=== PATIENT | female | born 1975 | race Hispanic/Latino ===

== ENCOUNTER 2017-02-09 19:59 | Observation (INO) | payer OTHER ==
[~2017-02-09] VITALS: Ht 157.5 cm; Wt 69.0 kg
[~2017-02-09 19:59] MED LIST: ACYCLOVIR400 MG PO; BACTRIM DS1 TAB OR; BENADRYL 50MG C50 MG PO; FIORICET PO; HYPROMELLOSE2.5 % OU; IBUPROFEN600 MG PO; IRON325 M1 MT; LEVOTHYROXIN75 MCG PO; LOPID600 MG PO; LORTAB 5 OR; LORTAB 7.5-3251 TAB PO; MACRODANTIN100 MG PO; NAPROSYN250 MG PO; NAPROSYN500 MG PO; NO HOME MEDS; NO MEDS; PEPCID20 MG PO; POLYTRIM OU; PRILOSEC20 MG OR; PRILOSEC40 MG PO; SIMVASTATIN10 MG PO
[2017-02-09 21:33] LABS: URINE BILIRUBIN - DIPSTICK NEGATIVE (NEGATIVE); URINE BLOOD DIPSTICK NEGATIVE (NEGATIVE); URINE CLARITY CLEAR; URINE COLOR YELLOW; URINE GLUCOSE - DIPSTICK NEGATIVE (NEGATIVE); URINE KETONE NEGATIVE (NEGATIVE); URINE LEUK ESTERASE NEGATIVE (NEGATIVE); URINE NITRITE - DIPSTICK NEGATIVE (Negative); URINE PH 7.5 (4.5-8.0); URINE PROTEIN - DIPSTICK 30 mg/dL (NEG-TRACE); URINE SPECIFIC GRAVITY 1.015
[2017-02-09 21:34] LABS: HEMATOCRIT 40.7 % (37.0-47.0); HEMOGLOBIN 14.2 g/dl (12.0-16.0); IMMATURE GRANULOCYTES 0.3 % (0.0-1.0); MEAN CELL VOLUME 87.9 fL CALC (80.0-100.0); MEAN CORPUSCULAR HGB 30.7 pG CALC (26.0-32.0); MEAN CORPUSCULAR HGB CONC 34.9 g/L CALC (32.0-36.0); NEUT# 5.61 thou/uL (2.00-7.15); RED BLOOD COUNT 4.63 mill/uL (4.20-5.60); RED CELL DISTRI WIDTH 11.9 % (11.5-15.5)
[2017-02-09 21:37] LABS: URINE SQUAMOUS EPITHELIAL CELL FEW EPI/hpf (0-FEW)
[2017-02-09] MEDS ORDERED: LEVOTHYROXIN100 MCG PO (21:50)
[2017-02-09] MEDS ORDERED: FENOFIBRATE145 MG PO (21:52)
[2017-02-09 21:57] LABS: ALBUMIN 4.6 g/dL (3.2-5.0); ALKALINE PHOSPHATASE 51 u/l (38-126); AMYLASE 86 u/l (30-110); ANION GAP 15 (6-22 (CALC)); BILIRUBIN, TOTAL 0.5 mg/dL (0.0-1.4); BUN 12 mg/dL (7-17); BUN/CREATININE RATIO 12 (12-20 (CALC)); CALCIUM 9.5 mg/dL (8.4-10.2); CARBON DIOXIDE 25 mmol/l (22-30); CHLORIDE 105 mmol/l (95-108); GFR > 60 ML/MIN (>=60 (CALC)); GFR FOR AFR.AMER. > 60 ML/MIN (>=60 (CALC)); GLUCOSE 104 mg/dL (65-105); LIPASE 240 u/l (23-300); POTASSIUM 3.6 mmol/l (3.5-5.1); SGOT/AST 74 u/l (14-36); SGPT/ALT 92 u/l (9-52); SODIUM 142 mmol/l (137-146); TOTAL PROTEIN 8.6 g/dL (6.3-8.2)
[2017-02-10 04:00] VITALS: BP 111/77
[2017-02-10 09:02] VITALS: BP 95/56
[2017-02-10] MEDS ORDERED: AUGMENTIN875TAB PO (10:53)
[2017-02-10] MEDS ORDERED: NORCO1 TA1 PO (10:54)
== END 2017-02-10 12:40 | disposition home or self-care (01) | DRG 446 ==
LOC: ENPENDDIS → ED 19:59 → ED-I 02-10 02:18 → ED 02-10 03:32 → MS2 02-10 03:33
PROVIDERS: Emergency Medicine; ADMIT Internal Medicine; ATTEND Internal Medicine
DX: K80.00 Calculus of gallbladder with acute cholecystitis without obstruction (principal); E03.9 Hypothyroidism, unspecified
CPT/HCPCS: G0378; S0164

== ENCOUNTER 2018-07-26 19:45 | Emergency (ER) | payer OTHER ==
[~2018-07-26] VITALS: Ht 157.5 cm; Wt 68.0 kg
[~2018-07-26 19:45] MED LIST changes: +AUGMENTIN875TAB PO; +FENOFIBRATE145 MG PO; +LEVOTHYROXIN100 MCG PO; +NORCO1 TA1 PO
[2018-07-26 20:28] LABS: HEMATOCRIT 38.9 % (37.0-47.0); HEMOGLOBIN 13.9 g/dl (12.0-16.0); IMMATURE GRANULOCYTES 0.5 % (0.0-5.0); MEAN CELL VOLUME 87.8 fL CALC (80.0-100.0); MEAN CORPUSCULAR HGB 31.4 pG CALC (26.0-32.0); MEAN CORPUSCULAR HGB CONC 35.7 g/L CALC (32.0-36.0); NEUT# 5.94 thou/uL (2.00-7.15); RED BLOOD COUNT 4.43 mill/uL (4.20-5.60); RED CELL DISTRI WIDTH 12.5 % (11.5-15.5)
[2018-07-26 20:37] LABS: ALBUMIN 4.5 g/dL (3.2-5.0); ALKALINE PHOSPHATASE 77 u/l (38-126); ANION GAP 17 (6-22 (CALC)); BILIRUBIN, TOTAL 0.7 mg/dL (0.0-1.4); BUN 9 mg/dL (7-17); BUN/CREATININE RATIO 12 (12-20 (CALC)); CARBON DIOXIDE 21 mmol/l (22-30); CHLORIDE 107 mmol/l (95-108); CREATININE 0.8 mg/dL (0.5-1.0); GFR > 60 ML/MIN (>=60 (CALC)); GFR FOR AFR.AMER. > 60 ML/MIN (>=60 (CALC)); SGOT/AST 47 u/l (14-36); SODIUM 141 mmol/l (137-146); TOTAL PROTEIN 7.9 g/dL (6.3-8.2)
[2018-07-26 20:58] VITALS: BP 132/70
== END 2018-07-26 20:57 | disposition home or self-care (01) | DRG 93 ==
LOC: ED 19:45
PROVIDERS: Emergency Medicine
DX: R20.2 Paresthesia of skin (principal); R73.9 Hyperglycemia, unspecified

== ENCOUNTER 2019-07-13 03:42 | Observation (INO) | payer OTHER ==
[2019-07-13] VITALS (10 sets, daily range): BP systolic 98–128; BP diastolic 56–77
[~2019-07-13] VITALS: Ht 157.5 cm; Wt 71.2 kg
--- NOTE | 2019-07-13 03:50 | NUR ---
AMBULATED TO ROOM
--- NOTE | 2019-07-13 03:51 | NUR ---
PT. TO ROOM 9 WITH C/O RUQ PAIN FOR APPROX 2 DAYS. ABD. SOFT WITH + BOWEL SOUNDS.
--- NOTE | 2019-07-13 04:11 | NUR ---
IM ANTIEMETIC GIVEN PER MD ORDER. IV PAIN MED AND IV PROTONIX GIVEN PER MD ORDER.
[2019-07-13 04:15] LABS: HEMATOCRIT 37.5 % (37.0-47.0); HEMOGLOBIN 13.1 g/dl (12.0-16.0); IMMATURE GRANULOCYTES 0.4 % (0.0-5.0); MEAN CELL VOLUME 87.8 fL CALC (80.0-100.0); MEAN CORPUSCULAR HGB 30.7 pG CALC (26.0-32.0); MEAN CORPUSCULAR HGB CONC 34.9 g/L CALC (32.0-36.0); NEUT# 4.21 thou/uL (2.00-7.15); RED BLOOD COUNT 4.27 mill/uL (4.20-5.60); RED CELL DISTRI WIDTH 12.4 % (11.5-15.5)
[2019-07-13 04:17] LABS: URINE BILIRUBIN - DIPSTICK NEGATIVE (NEGATIVE); URINE BLOOD DIPSTICK TRACE-INTACT (NEGATIVE); URINE COLOR YELLOW; URINE GLUCOSE - DIPSTICK NEGATIVE (NEGATIVE); URINE KETONE NEGATIVE (NEGATIVE); URINE LEUK ESTERASE NEGATIVE (NEGATIVE); URINE NITRITE - DIPSTICK NEGATIVE (Negative); URINE PROTEIN - DIPSTICK NEGATIVE (NEG-TRACE); URINE SPECIFIC GRAVITY 1.015; URINE UROBILINOGEN - DIPSTICK 0.2 E.U./dL (0.2)
[2019-07-13 04:31] LABS: ALBUMIN 4.5 g/dL (3.2-5.0); ALKALINE PHOSPHATASE 81 u/l (38-126); AMYLASE 65 u/l (30-110); ANION GAP 15 (6-22 (CALC)); BUN 12 mg/dL (7-17); BUN/CREATININE RATIO 13 (12-20 (CALC)); CARBON DIOXIDE 20 mmol/l (22-30); CHLORIDE 106 mmol/l (95-108); CREATININE 0.9 mg/dL (0.5-1.0); GFR > 60 ML/MIN (>=60 (CALC)); GFR FOR AFR.AMER. > 60 ML/MIN (>=60 (CALC)); LIPASE 352 u/l (23-300); POTASSIUM 4.2 mmol/l (3.5-5.1); SGOT/AST 43 u/l (14-36); SODIUM 138 mmol/l (137-146); TOTAL PROTEIN 7.9 g/dL (6.3-8.2)
[2019-07-13 04:43] LABS: BILIRUBIN, TOTAL 0.4 mg/dL (0.0-1.4)
--- NOTE | 2019-07-13 04:49 | NUR ---
PT. STATES HER ABD. PAIN IS NOW DECREASED TO A 5 ON A SCALE OF 1-10.
--- NOTE | 2019-07-13 05:49 | NUR ---
RESTING QUIETLY ON STRETCHER, NO C/O AT THIS TIME, AWAKENS EASILY.
--- NOTE | 2019-07-13 06:45 | NUR ---
REPORT REC'D FROM OFF GOING NURSE AND CARE ASSUMED, PT AMBULATED BACK TO STRETCHER, OFFERS NO COMPLAITS, AND NO S/S OF DISTRESS SINCE MEDICATED ON PREVIOUS SHIFT, IVF AND ABT ORDERED. CALL [facility] WITHIN REACH, PT ABLE TO REPOSITION SELF FOR COMFORT.
--- NOTE | 2019-07-13 07:05 | NUR ---
PT TO ULTRASOUND VIA WHEELCHAIR.
--- NOTE | 2019-07-13 08:08 | NUR ---
BACK FROM US, RESTING IN BED, OFFERS NO COMPLAINTS IVF RESATRTED AND CALL [facility] WITHIN REACH
--- NOTE | 2019-07-13 09:05 | NUR ---
PT RESTING WITH EYES CLOSED, NO S/S OF DISTRESS NOTED
--- NOTE | 2019-07-13 09:43 | NUR ---
REPORT CALLED TO RODRÍGUEZ RN, ROOM [id number] ASSIGNED, NO TELE ORDERED
--- NOTE | 2019-07-13 09:48 | NUR ---
PT TRANSFERRED TO MED SURG VIA STRETCHER. ALL BELONGINGS WITH PT
--- NOTE | 2019-07-13 10:17 | NUR ---
REPORT RECEIVED FROM CARIN IN ED, PT TRANSPORTED TO UNIT @ 0950 VIA STRETCHER BY ED STAFF, ALERT AND ORIENTED X 3, C/O MILD PAIN TO LUQ. IV CATHETER IN PLACE TO LAC WITH IVF INFUSING. ORIENTED TO ROOM AND CALL [facility], SETTLED IN BED, WILL CONTINUE TO MONTIOR.
--- NOTE | 2019-07-13 11:53 | NUR ---
OR STAFF HERE RECEIVING PT, PT AMBULATED WITH STEADY GAIT TO STRETCHER AND BEING TRANSPORTED TO OR AT THIS TIME.
--- NOTE | 2019-07-13 13:50 | NUR ---
PT TRANSPORTED BACK TO UNIT IN BED WITH OR STAFF, REPORT RECEIVED FROM FROY AT BEDSIDE, PT AWAKE, GROGGY BUT ORIENTED, C/O ABD PAIN OF 8/10 AT THIS TIME (1350), PUNCTURE X 4 TO ABDOMEN, WELL APPRIXIMATED WITH SURGICAL GLUE, IVF INFUSING, PAIN CONCERNS ADDRESSED, SET UP FOR POST-OP VITAL SIGNS MONITORING, ASSISTED TO BSC, CALL [facility] IN REACH.
--- NOTE | 2019-07-13 16:10 | NUR ---
PT SLEEPING AT THIS TIME AFTER NAUSEA AND PAIN CONCERNS ADDRESSED, NO SIGN DISCOMFORT.
--- NOTE | 2019-07-13 17:45 | NUR ---
PT UNABLE TO TOLERATE ORAL LIQUIDS AND VOMITTING, DR MICHELLE NOTIFIED AND ADVISED TO HOLD D/C TILL TOMORROW, NIGHT NURSE INFORMED.
--- NOTE | 2019-07-13 19:05 | NUR ---
REPORT FROM RODRÍGUEZ LOPEZ. PT SITTING UP IN BED. ALERT AND ORIENTED. VISITOR PRESENT IN ROOM. PT DENIES ANY PAIN OR NAUSEA AT THIS TIME. DISCUSSED POC. PT VERBALIZED UNDERSTANDING. IV FLUIDS INFUSING WITHOUT DIFFICULTY. CALL LIGHT WITHIN REACH. WILL CONTINUE TO MONITOR.
--- NOTE | 2019-07-13 23:31 | NUR ---
PT RESTING IN BED WITH EYES CLOSED. NO APPARENT DISTRESS NOTED. PT DENIES ANY PAIN OR NAUSEA AT THIS TIME. CALL LIGHT WITHIN REACH. WILL CONTINUE TO MONITOR.
--- NOTE | 2019-07-14 01:00 | NUR ---
PT MEDICATED WITH PO APAP FOR MILD PAIN. INCISIONS CDI. PT DENIES ANY NAUSEA AT THIS TIME. CALL LIGHT WITHIN REACH. WILL CONTINUE TO MONITOR.
[2019-07-14 04:17] VITALS: BP 112/72
--- NOTE | 2019-07-14 05:46 | NUR ---
PT RESTING IN BED WITH EYES CLOSED. NO APPARENT DISTRESS NOTED. CALL LIGHT WITHIN REACH. WILL CONTINUE TO MONITOR.
[2019-07-14 07:12] VITALS: BP 102/58
--- NOTE | 2019-07-14 07:30 | NUR ---
REPORT RECEIVED FROM MAXIM. ASSESSMENT DONE. PT IS A&O X3. PT DENIES PAIN AT THIS TIME. IVF INFUSING WELL. EDUCATED PT HOW TO USE THE I.S PT VERBALIZED UNDERSTANDING. X4 INCISIONS IN ABD CDI. SCD IN PLACE. CALL LIGHT IN REACH.
--- NOTE | 2019-07-14 09:55 | NUR ---
STUDENT ALAN WENT TO DO MED REC FOR PT, SHE IS ESBL CONTACT PRECAUTION. SPOKE WITH NURSE, WILL COMPLETE MED REC WHEN PT IS AWAKE
--- NOTE | 2019-07-14 12:00 | NUR ---
PT EATING HER LUNCH WITH NO S/S OF DISTRESS NOTED. PT DENIES NEEDS . CALL LIGHT IN REACH.
--- NOTE | 2019-07-14 13:21 | NUR ---
Discharge instructions given. Patient verbalizes understanding of same. Discharged in stable condition via Wheelchair to Home with staff. All belongings sent with pt.
--- NOTE | 2019-07-15 08:37 | NUR ---
Critical blood culture results of gram positive cocci growing in [address] Muse. Pharmacy will follow final results.
--- NOTE | 2019-07-17 12:39 | NUR ---
Dr Muse informed of likely skin contaminant growing in blood culture.
== END 2019-07-14 13:21 | disposition home or self-care (01) | DRG 419 ==
LOC: ED 03:42 → ED-I 07:50 → ED 08:04 → MS2 08:05
PROVIDERS: Emergency Medicine; ADMIT Surgery; ATTEND Surgery
PROC: 0FT44ZZ Resection of Gallbladder, Percutaneous Endoscopic Approach (ICD-10-PCS; principal; 2019-07-13)
DX: K81.1 Chronic cholecystitis (principal); E03.9 Hypothyroidism, unspecified
CPT/HCPCS: G0378; J0131; J2710; Q9967; S0164

== ENCOUNTER 2019-12-22 | Day surgery (SDC) | payer OTHER ==
[~2019-12-22] MED LIST changes: +OMEPRAZOLE20 MG PO
[2019-12-22] MEDS ORDERED: LOPID600 MG PO (07:38)
--- NOTE | 2020-01-01 10:38 | NUR ---
PER DR MICHELLE NEGATIVE COLONOSCOPY EXCEPT EXTERNAL HEMORRHOIDS. REPLEAT COLONOSCOPY IN 10 YEARS. ADVISED PATIENT'S DAUGHTER. SHE UNDERSTOOD
== END 2019-12-22 09:40 | disposition home or self-care (01) | DRG 395 ==
PROC: 0DJD8ZZ Inspection of Lower Intestinal Tract, Via Natural or Artificial Opening Endoscopic (ICD-10-PCS; principal; 2019-12-22)
DX: K64.4 Residual hemorrhoidal skin tags (principal)

== ENCOUNTER 2020-04-01 08:33 | Emergency (ER) | payer OTHER ==
[~2020-04-01] VITALS: Ht 154.9 cm; Wt 72.7 kg
[2020-04-01] MEDS ORDERED: ZPAK PO (09:51)
[2020-04-01 11:25] VITALS: BP 122/75
== END 2020-04-01 11:25 | disposition home or self-care (01) | DRG 153 ==
LOC: ED 08:33
DX: J06.9 Acute upper respiratory infection, unspecified (principal); Z20.828 Contact with and (suspected) exposure to other viral communicable diseases

== ENCOUNTER 2021-09-14 00:18 | Emergency (ER) | payer OTHER ==
[~2021-09-14] VITALS: Ht 154.9 cm; Wt 71.0 kg
[~2021-09-14 00:18] MED LIST changes: +ZPAK PO
[2021-09-14] MEDS ORDERED: IBUPROFEN600 MG PO (00:56)
[2021-09-14 01:42] VITALS: BP 130/74
== END 2021-09-14 01:53 | disposition home or self-care (01) | DRG 563 ==
LOC: ED 00:18
DX: S43.401A Unspecified sprain of right shoulder joint, initial encounter (principal); S40.011A Contusion of right shoulder, initial encounter; W20.8XXA Other cause of strike by thrown, projected or falling object, initial encounter; Y92.008 Other place in unspecified non-institutional (private) residence as the place of occurrence of the external cause

== ENCOUNTER 2021-10-15 14:52 | Emergency (ER) | payer OTHER ==
[~2021-10-15] VITALS: Ht 154.9 cm; Wt 69.5 kg
[2021-10-15] MEDS ORDERED: DECADRON6 MG PO (17:44)
[2021-10-15] MEDS ORDERED: ZOFRAN4 M1 PO (17:44)
[2021-10-15 20:54] VITALS: BP 110/66
== END 2021-10-15 20:54 | disposition home or self-care (01) | DRG 179 ==
LOC: ED 14:52
DX: U07.1 COVID-19 (principal); E11.9 Type 2 diabetes mellitus without complications

== ENCOUNTER 2021-11-14 18:48 | Emergency (ER) | payer OTHER ==
[~2021-11-14] VITALS: Ht 154.9 cm; Wt 71.0 kg
[~2021-11-14 18:48] MED LIST changes: +DECADRON6 MG PO; +ZOFRAN4 M1 PO
[2021-11-14] MEDS ORDERED: AMOXICILLIN875 MG PO (21:39)
[2021-11-14 21:41] VITALS: BP 156/99
== END 2021-11-14 22:00 | disposition home or self-care (01) | DRG 156 ==
LOC: ED 18:48
PROC: 3E1B38Z Irrigation of Ear using Irrigating Substance, Percutaneous Approach (ICD-10-PCS; principal; 2021-11-14)
DX: H61.21 Impacted cerumen, right ear (principal); H66.91 Otitis media, unspecified, right ear; E11.9 Type 2 diabetes mellitus without complications

== ENCOUNTER 2022-05-29 07:19 | Day surgery (SDC) | payer OTHER ==
[~2022-05-29] VITALS: Ht 154.9 cm; Wt 72.5 kg
[~2022-05-29 07:19] MED LIST changes: +AMOXICILLIN875 MG PO; +BL MAGNESIUM250 MG PO; +LEVOTHYROXIN125 MCG PO; +LIPITOR10 M1 PO; +METFORMIN500 M2 PO; +VITAMIN D22000 UNIT PO
[2022-05-29 14:26] VITALS: BP 112/63
== END 2022-05-29 14:30 | disposition home or self-care (01) | DRG 502 ==
LOC: ORM 07:19
PROVIDERS: ATTEND Orthopaedic Surgery
PROC: 0LM24ZZ Reattachment of Left Shoulder Tendon, Percutaneous Endoscopic Approach (ICD-10-PCS; principal; 2022-05-29)
PROC: 0LS44ZZ Reposition Left Upper Arm Tendon, Percutaneous Endoscopic Approach (ICD-10-PCS; 2022-05-29)
PROC: 0RHK44Z Insertion of Internal Fixation Device into Left Shoulder Joint, Percutaneous Endoscopic Approach (ICD-10-PCS; 2022-05-29)
PROC: 0RNK4ZZ Release Left Shoulder Joint, Percutaneous Endoscopic Approach (ICD-10-PCS; 2022-05-29)
PROC: 3E0T3BZ Introduction of Anesthetic Agent into Peripheral Nerves and Plexi, Percutaneous Approach (ICD-10-PCS; 2022-05-29)
DX: M75.121 Complete rotator cuff tear or rupture of right shoulder, not specified as traumatic (principal); S43.431A Superior glenoid labrum lesion of right shoulder, initial encounter; M75.51 Bursitis of right shoulder; M25.811 Other specified joint disorders, right shoulder; X58.XXXA Exposure to other specified factors, initial encounter; E11.9 Type 2 diabetes mellitus without complications
CPT/HCPCS: C9290; J0131

== ENCOUNTER 2022-10-16 17:35 | Emergency (ER) | payer OTHER ==
[~2022-10-16] VITALS: Ht 154.9 cm; Wt 77.2 kg
[2022-10-16] MEDS ORDERED: CORTISPORIN OTI10 M2 AS (18:25)
[2022-10-16 18:55] VITALS: BP 123/76
== END 2022-10-16 19:03 | disposition home or self-care (01) | DRG 156 ==
LOC: ED 17:35
DX: H60.92 Unspecified otitis externa, left ear (principal)

== ENCOUNTER 2022-12-20 15:11 | Emergency (ER) | payer OTHER ==
[~2022-12-20] VITALS: Ht 154.9 cm; Wt 72.5 kg
[2022-12-20] VITALS (10 sets, daily range): BP systolic 94–126; BP diastolic 46–75
[~2022-12-20 15:11] MED LIST changes: +CORTISPORIN OTI10 M2 AS
[2022-12-20 16:40] LABS: URINE BILIRUBIN - DIPSTICK NEGATIVE (NEGATIVE); URINE BLOOD DIPSTICK SMALL (NEGATIVE); URINE COLOR YELLOW; URINE GLUCOSE - DIPSTICK >=1000 mg/dL (NEGATIVE); URINE KETONE NEGATIVE (NEGATIVE); URINE LEUK ESTERASE NEGATIVE (NEGATIVE); URINE PROTEIN - DIPSTICK NEGATIVE (NEG-TRACE); URINE SPECIFIC GRAVITY >=1.030; URINE UROBILINOGEN - DIPSTICK 0.2 E.U./dL (0.2)
[2022-12-20 16:41] LABS: URINE NITRITE - DIPSTICK NEGATIVE (Negative)
[2022-12-20 16:50] LABS: URINE SQUAMOUS EPITHELIAL CELL FEW EPI/hpf (0-FEW); URINE WBC 0-2 WBC/hpf (0-5)
[2022-12-20] MEDS ORDERED: NAPROXEN500 MG PO (17:06)
[2022-12-20] MEDS ORDERED: MEDDOSEPAK PO (17:06)
[2022-12-20] MEDS ORDERED: ZYRTEC10 MG PO (17:06)
== END 2022-12-20 17:36 | disposition home or self-care (01) | DRG 552 ==
LOC: ED 15:11
PROVIDERS: Nurse Practitioner
DX: M54.6 Pain in thoracic spine (principal); R05.9 Cough, unspecified; E11.9 Type 2 diabetes mellitus without complications

== ENCOUNTER 2023-03-23 17:51 | Emergency (ER) | payer SELFPAY ==
[~2023-03-23] VITALS: Ht 154.9 cm; Wt 72.0 kg
[~2023-03-23 17:51] MED LIST changes: +MEDDOSEPAK PO; +NAPROXEN500 MG PO; +ZYRTEC10 MG PO
[2023-03-23 18:15] VITALS: BP 126/76
[2023-03-23] MEDS ORDERED: MEDDOSEPAK PO (18:23)
[2023-03-23 18:31] VITALS: BP 113/76
[2023-03-23 18:45] VITALS: BP 118/76
[2023-03-23 18:57] VITALS: BP 118/76
== END 2023-03-23 19:02 | disposition home or self-care (01) | DRG 607 ==
LOC: ED 17:51
DX: L25.9 Unspecified contact dermatitis, unspecified cause (principal); E11.9 Type 2 diabetes mellitus without complications; Z79.84 Long term (current) use of oral hypoglycemic drugs

== ENCOUNTER 2023-06-17 12:52 | Emergency (ER) | payer OTHER ==
[~2023-06-17] VITALS: Ht 154.9 cm; Wt 71.0 kg
[2023-06-17 13:30] VITALS: BP 115/68
[2023-06-17 13:52] LABS: BASO% 0.6 % (0-3); EOS% 1.6 % (0-8); HEMATOCRIT 38.3 % (37.0-47.0); HEMOGLOBIN 13.4 g/dl (12.0-16.0); IMMATURE GRANULOCYTES 0.1 % (0.0-5.0); LYMPH% 25.8 % (15-41); MEAN CELL VOLUME 89.5 fL CALC (80.0-100.0); MEAN CORPUSCULAR HGB 31.3 pG CALC (26.0-32.0); MONO% 5.2 % (2-13); NEUT# 4.62 thou/uL (2.00-7.15); NEUT% 66.7 % (42-76); RED BLOOD COUNT 4.28 mill/uL (4.20-5.60); RED CELL DISTRI WIDTH 12.1 % (11.5-15.5)
[2023-06-17 14:10] LABS: ALKALINE PHOSPHATASE 71 u/l (38-126); ANION GAP 13 (6-22 (CALC)); BILIRUBIN, TOTAL 0.6 mg/dL (0.02-1.3); BUN 10 mg/dL (7-17); BUN/CREATININE RATIO 16 (12-20 (CALC)); CARBON DIOXIDE 20 mmol/l (22-30); CHLORIDE 106 mmol/l (95-108); CREATININE 0.6 mg/dL (0.5-1.0); GFR FOR AFR.AMER. > 60 ML/MIN (>=60 (CALC)); GFR OTHER RACES > 60 ML/MIN (>=60 (CALC)); POTASSIUM 3.8 mmol/l (3.5-5.1); SGOT/AST 86 u/l (14-36); SODIUM 135 mmol/l (137-146); TOTAL PROTEIN 7.6 g/dL (6.3-8.2)
[2023-06-17] MEDS ORDERED: FIORICET PO (14:50)
[2023-06-17 15:43] VITALS: BP 115/68
== END 2023-06-17 15:44 | disposition home or self-care (01) | DRG 103 ==
LOC: ED 12:52
PROVIDERS: Nurse Practitioner Family
DX: G43.509 Persistent migraine aura without cerebral infarction, not intractable, without status migrainosus (principal); R74.01 Elevation of levels of liver transaminase levels